=== PATIENT | male | born 1940 | race Caucasian/White ===

== ENCOUNTER 2018-04-24 04:07 | Inpatient (IN) | payer MEDICARE, OTHER ==
--- NOTE | 2018-04-24 04:36 | ER Document Report ---
ED General - General Stated Complaint: ALTERED MENTAL STATUS Time Seen by Provider: 04/24/18 04:16 Notes: Patient is a 78-year-old male that comes to the emergency department for chief complaint of altered mental status. states that he started acting confused after he went to bed, they noticed that 2 AM that he was not oriented to people and was not making sense. No fever, no trauma, he vomited a small amount per EMS upon EMS arrival. He was given Zofran. Past medical history includes CHF, liver failure, chronic kidney disease, he is on Lasix and spironolactone, he is not on lactulose although he was given this 2 weeks ago upon admission to [place] per family. Patient did not have any complaints before going to bed and seemed asymptomatic per family. - Related Data Allergies/Adverse Reactions: No Known Allergies Allergy (Unverified 04/24/18 05:51) Past Medical History - General Information source: Patient - Social History Smoking Status: Never Smoker Drug Abuse: None Lives with: Family Family History: Reviewed & Not Pertinent - Past Medical History Cardiac Medical History: Reports: Hx Congestive Heart Failure, Hx Hypertension Endocrine Medical History: Reports: Hx Hypothyroidism Renal/ Medical History: Reports: Other - Chronic kidney disease GI Medical History: Reports: Other - Liver failure - Immunizations Hx Diphtheria, Pertussis, Tetanus Vaccination: Yes Review of Systems - Review of Systems Constitutional: See HPI EENT: No symptoms reported Cardiovascular: No symptoms reported Respiratory: No symptoms reported Gastrointestinal: No symptoms reported Genitourinary: No symptoms reported Male Genitourinary: No symptoms reported Musculoskeletal: No symptoms reported Skin: No symptoms reported Hematologic/Lymphatic: No symptoms reported Neurological/Psychological: See HPI Physical Exam - Vital signs Vitals: Resp Pulse Ox 14 96 04/24/18 04:10 04/24/18 04:10 - Notes Notes: GENERAL: Awake, confused, minimally cooperative HEAD: Normocephalic, atraumatic. EYES: Pupils equal, round, and reactive to light. Extraocular movements intact. ENT: Oral mucosa moist, tongue midline. Oropharynx unremarkable. Airway patent. Nares patent, no nasal septal hematoma, TM's intact. NECK: Full range of motion. Supple. Trachea midline. LUNGS: Clear to auscultation bilaterally, no wheezes, rales, or rhonchi. No respiratory distress. HEART: Regular rate and rhythm. Loud murmur heard throughout, 08/01 ABDOMEN: Soft, non-tender. Non-distended. Bowel sounds present in all 4 quadrants. GENITOURINARY: Minimal irritation in the skin in the groin area, genital exam without concerning abnormality. EXTREMITIES: Moves all 4 extremities spontaneously. No edema, normal radial and dorsalis pedis pulses bilaterally. No cyanosis. BACK: no cervical, thoracic, lumbar midline tenderness. No saddle anesthesia, normal distal neurovascular exam. NEUROLOGICAL: Alert but not oriented. Normal speech. [cranial nerves II through XII grossly intact]. PSYCH: easily irritated SKIN: Warm, dry, normal turgor. No rashes or lesions noted. Course - Re-evaluation Re-evalutation: Patient can tell me he is at [facility], otherwise he gets extremely frustrated, flusted, either answers questions wrong or refuses to answer. He does appear to be clinically altered. Soft abdomen, clear lungs, blood pressure, heart rate, temperature, pulse oxygenation unremarkable. CAT scan of the head with no acute findings. Chest x-ray shows cardiomegaly without overt failure. Patient has clear lungs on exam, no tachypnea or hypoxia. CBC shows normocytic anemia. No leukocytosis. Chemistry shows chronic kidney disease which was reported by family. Troponin is not significantly elevated. Urinalysis indicates urinary tract infection, this is consistent with patient's urine which at bedside is very cloudy, milky, almost purulent. Patient has no abdominal tenderness or flank pain suggesting passing ureterolithiasis. He is actually very comfortable appearing. No history of kidney stones. Ammonia level is very elevated at 129. Giving lactulose p.o. 04/24/18 06:[address] Bradford, internal medicine, patient will be admitted to full admission [facility]. Family states agreement with this plan. - Vital Signs Vital signs: Temp Pulse Resp BP Pulse Ox 97.9 F 19 107/50 L 95 04/24/18 04:12 04/24/18 05:10 04/24/18 05:10 04/24/18 05:10 - Laboratory Result Diagrams: 04/24/18 04:43 04/24/18 04:43 Laboratory results interpreted by me: 04/24/18 04/24/18 04/24/18 04:28 04:43 04:43 RBC 3.30 L Hgb 9.1 L Hct 27.0 L RDW 22.1 H Monocytes % 15.2 H VBG pH BUN 41 H Creatinine 1.64 H Est GFR ( Amer) 49 L Est GFR (Non-Af Amer) 41 L Alkaline Phosphatase 162 H Ammonia Total Protein 5.8 L Albumin 2.7 L Urine Protein 100 H Urine Blood SMALL H Ur Leukocyte Esterase LARGE H 04/24/18 04/24/18 04:43 04:43 RBC Hgb Hct RDW Monocytes % VBG pH 7.52 H BUN Creatinine Est GFR ( Amer) Est GFR (Non-Af Amer) Alkaline Phosphatase Ammonia 129.3 H Total Protein Albumin Urine Protein Urine Blood Ur Leukocyte Esterase Discharge - Discharge Clinical Impression: Hepatic encephalopathy Altered mental status Qualifiers: Altered mental status type: unspecified Qualified Code(s): R41.82 - Altered mental status, unspecified Urinary tract infection Qualifiers: Urinary tract infection type: site unspecified Hematuria presence: without hematuria Qualified Code(s): N39.0 - Urinary tract infection, site not specified Condition: Fair Disposition: ADMITTED INPATIENT Admitting Provider: Hospitalist Unit Admitted: IMCU Referrals: LOCALMD,NO [NO LOCAL MD] - Follow up as needed
[2018-04-24 05:08] LABS: ABSOLUTE BASOPHILS # (AUTO) 0.1 10^3/uL (0.0-0.2); ABSOLUTE EOSINOPHILS # (AUTO) 0.3 10^3/uL (0.0-0.6); ABSOLUTE LYMPHOCYTES (AUTO) 0.9 10^3/uL (0.5-4.7); ABSOLUTE MONOCYTES (AUTO) 0.8 10^3/uL (0.1-1.4); ABSOLUTE NEUT (AUTO) 3.2 10^3/uL (1.7-8.2); BASOPHILS % (AUTO) 1.3 % (0-2); EOSINOPHILS % (AUTO) 5.4 % (0-6); HEMOGLOBIN 9.1 g/dL (13.5-17.0); LYMPHOCYTES % (AUTO) 17.7 % (13-45); MEAN CORPUSCULAR HEMOGLOBIN 27.7 pg (27.0-33.4); MEAN CORPUSCULAR HGB CONC 33.9 g/dL (32.0-36.0); MEAN CORPUSCULAR VOLUME 82 fl (80-97); MONOCYTES % (AUTO) 15.2 % (3-13); PLATELET COUNT 157 10^3/uL (150-450); RED CELL DISTRIBUTION WIDTH 22.1 % (11.5-14.0); SEGMENTED NEUTROPHILS % (AUTO) 60.4 % (42-78); TOTAL CELLS COUNTED % (AUTO) 100 %; WHITE BLOOD COUNT 5.2 10^3/uL (4.0-10.5)
[2018-04-24 05:08] LABS: APPEARANCE,URINE TURBID; BILIRUBIN,URINE NEGATIVE (NEGATIVE); COLOR,URINE YELLOW; GLUCOSE, URINE NEGATIVE (NEGATIVE); KETONES,URINE NEGATIVE (NEGATIVE); LEUKOCYTE ESTERASE,URINE LARGE (NEGATIVE); NITRITE,URINE NEGATIVE (NEGATIVE); PROTEIN,URINE 100 mg/dL (NEGATIVE); UROBILINOGEN,URINE NEGATIVE mg/dL (<2.0)
[2018-04-24] MEDS ORDERED: ONDANSETRON HCL INJ/PF 4 MG/2 ML SDV IV ONE (05:08)
[2018-04-24 05:19] LABS: VENOUS BLOOD BASE EXCESS 5.6 mmol/L; VENOUS BLOOD HCO3 28.5 mmol/L (20-32); VENOUS BLOOD PCO2 35.9 mmHg (35-63); VENOUS BLOOD PH 7.52 (7.30-7.42)
--- NOTE | 2018-04-24 05:21 | RADIOLOGY REPORT (SQ) ---
EXAM DESCRIPTION: XR CHEST 1 VIEW COMPLETED DATE/TME: 04/24/2018 04:26 CLINICAL HISTORY: 78 years, Male, AMS COMPARISON: None. NUMBER OF VIEWS: 1 TECHNIQUE: Portable view the chest LIMITATIONS: None. FINDINGS: Cardiomegaly. Sternotomy wires with pacing device. Mild atheromatous change thoracic aorta. Osteopenia. No pneumothorax. Mild interstitial edema. IMPRESSION: Cardiomegaly with mild interstitial edema 2010 [employer]- All Rights Reserved
--- NOTE | 2018-04-24 05:25 | RADIOLOGY REPORT (SQ) ---
EXAM DESCRIPTION: CT HEAD WITHOUT IV CONTRAST COMPLETED DATE/TME: 04/24/2018 04:25 CLINICAL HISTORY: 78 years, Male, AMS COMPARISON: None. TECHNIQUE: 213 Images stored on PACS. All CT scanners at this facility use dose modulation, iterative reconstruction, and/or weight based dosing when appropriate to reduce radiation dose to as low as reasonably achievable (ALARA). [facility]: Dose Right [facility]: CareDose [facility]: Dose Right [facility]: Teradose 4D [facility]: [employer] LIMITATIONS: None. FINDINGS: The globes are intact. The paranasal sinuses and mastoid air cells are unremarkable. No displaced or depressed skull fracture. No intra or extra-axial hemorrhage. CT is limited for evaluation of acute infarct. No CT evidence for large or territorial acute infarct. Age-appropriate atrophy with small vessel ischemic change. IMPRESSION: Age-appropriate atrophy with small vessel ischemic change TECHNICAL DOCUMENTATION: Quality ID # 436: Final reports with documentation of one or more dose reduction techniques (e.g., Automated exposure control, adjustment of the mA and/or kV according to patient size, use of iterative reconstruction technique) 2010 [employer]- All Rights Reserved
[2018-04-24] MEDS ORDERED: CEFTRIAXONE 1 GM/D5W RTU 1 GM/50 ML RTUPB IV ONE (05:27)
[2018-04-24 05:29] LABS: ALANINE AMINOTRANSFERASE 23 U/L (21-72); ALBUMIN 2.7 g/dL (3.5-5.0); ALKALINE PHOSPHATASE 162 U/L (38-126); ANION GAP 9 (5-19); ASPARTATE AMINO TRANSFERASE 34 U/L (17-59); BILIRUBIN,DIRECT 0.4 mg/dL (0.0-0.4); BILIRUBIN,TOTAL 0.8 mg/dL (0.2-1.3); BLOOD UREA NITROGEN 41 mg/dL (7-20); CALCIUM 8.8 mg/dL (8.4-10.2); CARBON DIOXIDE 28 mmol/L (22-30); CHLORIDE 104 mmol/L (98-107); GLUCOSE 109 mg/dL (75-110); POTASSIUM 4.5 mmol/L (3.6-5.0); SODIUM 141.2 mmol/L (137-145); TOTAL PROTEIN 5.8 g/dL (6.3-8.2)
[2018-04-24] MEDS ORDERED: LACTULOSE SYRUP 20 GM/30 ML UDCUP PO ONE (05:41)
--- NOTE | 2018-04-24 07:59 | EKG REPORT ---
SEVERITY:- ABNORMAL ECG - VENTRICULAR-PACED COMPLEXES LEFT BUNDLE BRANCH BLOCK ST DEPRESSION, CONSIDER ISCHEMIA, INF LEADS : Confirmed by: Iabn Patel MD 24-Apr-2018 07:59:08
--- NOTE | 2018-04-24 10:26 | PDOC H&P ---
History of Present Illness Admission Date/PCP: 04/24/18 06:25 History of Present Illness: MARGARITA WAGNER is a 78 year old male with a history of hepatic cirrhosis who was apparently admitted to [facility] and then discharged a couple weeks ago and apparently was given lactulose during the hospitalization but by report has not been on any lactulose at home. According to the reports, he was brought back in because of altered mental status and was found to have an elevated ammonia level. The patient believes he is still in [facility]. He does not know what day it is. He is unable to really give me any reliable history because of his current mental status. He is awake and appears comfortable. Past Medical History Cardiac Medical History: Reports: Congestive Heart Failure, Hypertension Endocrine Medical History: Reports: Hypothyroidism Renal/ Medical History: Reports: Other - Chronic kidney disease GI Medical History: Reports: Other - Liver failure Social History Lives with: Family Smoking Status: Former Smoker Frequency of Alcohol Use: None Hx Recreational Drug Use: No Hx Prescription Drug Abuse: No Family History Family History: Other - Unable to obtain due to his mental status Parental Family History Reviewed: No - Unable to obtain Children Family History Reviewed: No - Unable to obtain Sibling(s) Family History Reviewed.: No - Unable to obtain Medication/Allergy Home Medications: Ferrous Sulfate [Slow Fe] 142 mg PO BID 04/24/18 Furosemide [Lasix 80 mg Tablet] 80 mg PO BID 04/24/18 Levothyroxine Sodium 25 mcg PO Q6AM 04/24/18 Metoprolol Succinate [Toprol Xl 25 mg Tab.sr] 25 mg PO DAILY 04/24/18 Pantoprazole Sodium [Protonix] 40 mg PO BID 04/24/18 Spironolactone [Aldactone] 50 mg PO DAILY 04/24/18 Allergies/Adverse Reactions: No Known Allergies Allergy (Unverified 04/24/18 05:51) Review of Systems ROS unobtainable: Due to mental status Physical Exam Vital Signs: Temp Pulse Resp BP Pulse Ox 97.6 F 67 16 92/51 L 97 04/24/18 07:50 04/24/18 07:50 04/24/18 07:50 04/24/18 07:50 04/24/18 07:50 Intake & Output 04/23/18 04/24/18 04/25/18 06:59 06:59 06:59 Intake Total 50 Balance 50 Weight 90.8 kg General appearance: PRESENT: no acute distress, cooperative, disheveled Head exam: PRESENT: atraumatic Eye exam: PRESENT: EOMI, PERRLA. ABSENT: conjunctival injection, nystagmus, scleral icterus Ear exam: PRESENT: normal external ear exam Mouth exam: PRESENT: dry mucosa, neck supple Teeth exam: PRESENT: poor dentation Throat exam: ABSENT: post pharyngeal erythema Neck exam: PRESENT: full ROM. ABSENT: carotid bruit, JVD, lymphadenopathy, meningismus, tenderness, thyromegaly Respiratory exam: PRESENT: clear to auscultation vamshi, symmetrical, unlabored. ABSENT: accessory muscle use, chest wall tenderness, rales, rhonchi, tachypnea, wheezes Cardiovascular exam: PRESENT: RRR, +S1, +S2, systolic murmur. ABSENT: diastolic murmur Pulses: PRESENT: normal carotid pulses, normal radial pulses Vascular exam: PRESENT: normal capillary refill GI/Abdominal exam: PRESENT: normal bowel sounds, soft. ABSENT: distended, guarding, rebound, tenderness Extremities exam: PRESENT: pedal edema, +2 edema. ABSENT: joint swelling Musculoskeletal exam: PRESENT: normal inspection. ABSENT: deformity Neurological exam: PRESENT: altered, awake, oriented to person, other - Could not reliably assess his cranial nerves due to his mental status. ABSENT: oriented to place, oriented to time, oriented to situation Psychiatric exam: PRESENT: flat affect, normal mood Skin exam: PRESENT: dry, warm Results Impressions: Head CT 04/24/18 04:25 IMPRESSION: Age-appropriate atrophy with small vessel ischemic change TECHNICAL DOCUMENTATION: Quality ID # 436: Final reports with documentation of one or more dose reduction techniques (e.g., Automated exposure control, adjustment of the mA and/or kV according to patient size, use of iterative reconstruction technique) 2010 [employer]- All Rights Reserved Chest X-Ray 04/24/18 04:26 IMPRESSION: Cardiomegaly with mild interstitial edema 2010 [employer]- All Rights Reserved Assessment & Plan - Diagnosis (1) Hepatic encephalopathy Is this a current diagnosis for this admission?: Yes Plan: We will put him on his usual medications for his cirrhosis that he is on at home , and we will give him lactulose 4 times a day and monitor the improvement in his mental status. He should probably be on some maintenance lactulose whenever he goes home. (2) Hypothyroidism Qualifiers: Hypothyroidism type: unspecified Qualified Code(s): E03.9 - Hypothyroidism , unspecified Is this a current diagnosis for this admission?: Yes Plan: Continue Synthroid - Time Time Spent: 50 to 70 Minutes - Inpatient Certification Based on my medical assessment, after consideration of the patient's comorbidities, presenting symptoms, or acuity I expect that the services needed warrant INPATIENT care.: Yes I certify that my determination is in accordance with my understanding of Medicare's requirements for reasonable and necessary INPATIENT services [42 CFR 412.3e].: Yes Medical Necessity: Significant Comorbidiites Make Outpatient Treatment Too Risky , Need Close Monitoring Due to Risk of Patient Decompensation, Need For Continuous Telemetry Monitoring, Need for Neurological Checks
[2018-04-24] MEDS ORDERED: FUROSEMIDE 80 MG TABLET PO ONE (11:00)
[2018-04-24] MEDS ORDERED: METOPROLOL SUCCINATE 25 MG TAB.SR.24H PO ONE (11:00)
[2018-04-24] MEDS ORDERED: SPIRONOLACTONE 25 MG TABLET PO ONE (11:00)
[2018-04-24] MEDS: LACTULOSE SYRUP 20 GM/30 ML UDCUP PO SCH ×3 (14:10→21:38)
[2018-04-24] MEDS: LANSOPRAZOLE 30 MG TAB.RAP.DR PO SCH (17:17)
[2018-04-24] MEDS: FERROUS SULFATE 325 MG TABLET PO SCH (17:17)
[2018-04-24] MEDS: FUROSEMIDE 80 MG TABLET PO SCH (17:19)
[2018-04-24] MEDS ORDERED: (PENDING PHARMACY ID) (Ferrous Sulfate [Slow Fe] 142 MG) PO SCH (18:00)
[2018-04-25 05:24] LABS: ANION GAP 9 (5-19); BLOOD UREA NITROGEN 38 mg/dL (7-20); CALCIUM 8.8 mg/dL (8.4-10.2); CARBON DIOXIDE 27 mmol/L (22-30); CHLORIDE 105 mmol/L (98-107); GLUCOSE 100 mg/dL (75-110); POTASSIUM 4.4 mmol/L (3.6-5.0); SODIUM 140.9 mmol/L (137-145)
[2018-04-25] MEDS ORDERED: LEVOTHYROXINE SODIUM 0.025 MG TABLET PO SCH (06:00)
[2018-04-25 08:41] VITALS: BP 93/44
[2018-04-25] MEDS: LANSOPRAZOLE 30 MG TAB.RAP.DR PO SCH (08:55)
[2018-04-25] MEDS: FERROUS SULFATE 325 MG TABLET PO SCH (08:55)
[2018-04-25] MEDS: FUROSEMIDE 80 MG TABLET PO SCH (09:39)
[2018-04-25] MEDS: LACTULOSE SYRUP 20 GM/30 ML UDCUP PO SCH (09:41)
[2018-04-25] MEDS ORDERED: SPIRONOLACTONE 25 MG TABLET PO SCH (10:00)
[2018-04-25] MEDS ORDERED: (PENDING PHARMACY ID) (Spironolactone [Aldactone] 50 MG) PO SCH (10:00)
[2018-04-25] MEDS ORDERED: METOPROLOL SUCCINATE 25 MG TAB.SR.24H PO SCH (10:00)
[2018-04-25] MEDS ORDERED: ENOXAPARIN SODIUM INJ 40 MG/0.4 ML DISP.SYRIN SUBCUT SCH (10:00)
--- NOTE | 2018-04-26 09:32 | DISCHARGE SUMMARY E ---
Discharge Summary NAME: MARGARITA WAGNER : 1940 AGE: 78Y ADMITTED: 04/24/2018 DISCHARGED: 04/25/2018 CODE STATUS: FULL CODE. PRIMARY CARE PROVIDER: In [place] DISCHARGE DIAGNOSES INCLUDE: 1. Hyperammonemia. 2. Hepatic cirrhosis. 3. Chronic kidney disease, stage 3. 4. Hypothyroidism. DISCHARGE MEDICATIONS INCLUDE: 1. Lactulose 10 grams p.o. q.i.d., 1000 mL with 0 refills. 2. Ferrous sulfate 142 mg p.o. b.i.d. 3. Lasix 80 mg p.o. b.i.d. 4. Levothyroxine 25 mcg p.o. every morning. 5. Toprol XL 25 mg p.o. daily. 6. Protonix 40 mg p.o. b.i.d. 7. Aldactone 50 mg p.o. daily. DIET: As tolerated. ACTIVITY: As tolerated. CONDITION: Fair. DIAGNOSTICS: Lab values are as follows. Hematology obtained on 04/24/2018: WBCs are 5.2, hemoglobin is 9.1, hematocrit is 27.0, and platelet count is 157,000. Venous blood gas obtained on 04/24/2018 has a pH of 7.52, PCO2 of 35.9, bicarb is 28.5. Chemistry obtained on 04/25/2018: Sodium is 140, potassium 4.4, chloride is 105, carbon dioxide 27, BUN 38, creatinine is 0.64, glucose 100, calcium is 8.8, bilirubin 0.8, AST 34, ALT 23, alk phos 162, ammonia is 129. Troponin is 0.013. Total protein is 5.8, albumin 2.7. Blood cultures obtained on 04/24/[address] Head [address] obtained on 04/24/2018 reveals age-appropriate atrophy with small-vessel ischemic changes. Chest x-ray obtained on 04/24/2018 reveals cardiomegaly with mild interstitial edema. Vital signs are as follows: Temperature is 97.8, pulse 64, respirations 20, blood pressure is 93/44, oxygen saturation is 93% on room air. HISTORY OF PRESENT ILLNESS: The patient is a 78-year-old male with a past medical history of hepatic cirrhosis who was admitted to [facility] and was discharged a couple of weeks ago. The patient apparently was given lactulose during the hospitalization but by report had not been receiving any lactulose at home. The patient was brought to the Emergency Department because of altered mental status and was found to have an elevated ammonia level. The patient was found to be quite confused, still thinking he was in [facility]. The patient did not know what day it was; however, given the patient's altered mental status, he was referred to the hospitalist for admission and management. HOSPITAL COURSE: The patient was admitted to a telemetry unit. The patient was started on lactulose and he had numerous bowel movements with complete resolution of his altered state. The patient's mental status returned back to baseline. The family presented the morning of 04/25/2018 and stated that the patient was at his baseline and was quite eager for discharge. Prescriptions were provided and the patient was discharged from the hospital for his routine followup. Time spent on this discharge is 10 minutes. DICTATING PHYSICIAN: JOSSY CRAWFORD NP [id number] PHY#: [id number] ID: [id number] JOB#: [id number] ACCT: [id number] cc:Sonya JOHNSON NP > MTDD
--- NOTE | 2018-05-10 08:09 | DISCHARGE SUMMARY E ---
Discharge Summary NAME: MARGARITA WAGNER : 1940 AGE: 78Y ADMITTED: 04/24/2018 DISCHARGED: 04/25/2018 ADDENDUM CLARIFICATION: 1. Hepatic cirrhosis secondary to hyperammonemia, which has resolved with lactulose. 2. Abnormal urinalysis without the setting of any urinary symptoms at all. Therefore, active infection has been ruled out. DICTATING PHYSICIAN: JOSSY CRAWFORD NP [id number] PHY#: [id number] ID: [id number] JOB#: [id number] ACCT: [id number] cc:ESTRELLITA AMADOR M.D., MICHAEL NP > MTDD
== END 2018-04-25 09:50 | disposition home or self-care (01) | DRG 642 ==
LOC: ER 04:07 → EH 06:25 → 3N 07:49
PROVIDERS: ADMIT Internal Medicine; ATTEND Internal Medicine
DX: E72.20 Disorder of urea cycle metabolism, unspecified (principal); K74.60 Unspecified cirrhosis of liver; E03.9 Hypothyroidism, unspecified; I11.0 Hypertensive heart disease with heart failure; I50.9 Heart failure, unspecified; N18.3 Chronic kidney disease, stage 3 (moderate); Z87.891 Personal history of nicotine dependence; Z79.899 Other long term (current) drug therapy
CPT/HCPCS: 36415; 70450; 71045; 80048; 80053; 81001; 82140; 82803; 84484; 85025; 87040; 87086; 87088; 87186; 90686; 93005; 93010; 96365; 96375; 99285; J0696; J2405; J3490